=== PATIENT | female | born 1965 | race Hispanic/Latino ===

== ENCOUNTER 2019-01-19 00:06 | Emergency (ER) | payer SELFPAY ==
[2019-01-19 00:20] VITALS: BP 165/88
[2019-01-19] MEDS ORDERED: IPRATROPIUM/ALBUTEROL SULFATE 3 ML AMPUL.NEB IH ONE ×2 (00:30→00:33)
[2019-01-19] MEDS ORDERED: ALBUTEROL 2.5 MG/3 ML NEBU IH ONE ×2 (00:31→00:33)
--- NOTE | 2019-01-19 02:11 | Emergency Department Report ---
- General Chief Complaint: Adult Asthma Stated Complaint: ASTHAM DEANDRE Source: patient Mode of arrival: Ambulatory Limitations: No Limitations - History of Present Illness Initial Comments: Patient is a 53-year-old female with a history of asthma presents to the ED with nasal and sinus congestion, dry cough with wheezing and shortness of breath for the last 2 days. Patient states that she is exposed to people smoke at work and occasionally gets asthma exacerbation from smoke exposure. Patient states that she has been using her albuterol inhaler and nebulizers at home as needed within no relief. Patient denies chest pain, dizziness, fever, chills, nausea, vomiting, sore throat, headache, abdominal pain, back pain, change in vision or syncope. MD Complaint: cough, nasal congestion, other (wheezing, dyspnea) -: Sudden, days(s) (2) Severity: severe Severity scale (0 -10): 7 Quality: dull, aching Consistency: intermittent Improves With: nothing Worsens With: nothing Associated Symptoms: denies other symptoms, rhinorrhea, nasal congestion, cough. denies: fever, chills, myalgias, sore throat, chest pain, nausea, diarrhea, confusion, weight loss, epistaxis, ear pain Treatments Prior to Arrival: none - Related Data Previous Rx's Medication Instructions Recorded Last Taken Type methylPREDNISolone [Medrol 4MG 4 mg PO DAILY #21 tab.ds.pk 01/19/19 Unknown Rx DOSEPAK (21 tabs)] Allergies Allergy/AdvReac Type Severity Reaction Status Date / Time ibuprofen Allergy Swelling Verified 01/19/19 00:16 ED Review of Systems ROS: Stated complaint: ASTHAM DEANDRE Other details as noted in HPI Constitutional: denies: chills, fever Eyes: denies: eye pain, eye discharge, vision change ENT: congestion. denies: ear pain, throat pain Respiratory: cough, shortness of breath, wheezing Cardiovascular: denies: chest pain, palpitations Endocrine: no symptoms reported Gastrointestinal: denies: abdominal pain, nausea, diarrhea Genitourinary: denies: urgency, dysuria, discharge Musculoskeletal: denies: back pain, joint swelling, arthralgia Skin: denies: rash, lesions Neurological: denies: headache, weakness, paresthesias Psychiatric: denies: anxiety, depression Hematological/Lymphatic: denies: easy bleeding, easy bruising ED Past Medical Hx - Past Medical History Previous Medical History?: Yes Hx Asthma: Yes - Surgical History Past Surgical History?: No - Social History Smoking Status: Never Smoker Substance Use Type: None - Medications Home Medications: Home Medications Medication Instructions Recorded Confirmed Last Taken Type methylPREDNISolone [Medrol 4MG 4 mg PO DAILY #21 tab.ds.pk 01/19/19 Unknown Rx DOSEPAK (21 tabs)] ED Physical Exam - General Limitations: No Limitations General appearance: alert, in no apparent distress - Head Head exam: Present: atraumatic, normocephalic, normal inspection - Eye Eye exam: Present: normal appearance, PERRL, EOMI - ENT ENT exam: Present: normal exam, normal orophraynx, mucous membranes moist, TM's normal bilaterally, normal external ear exam - Neck Neck exam: Present: normal inspection, full ROM - Respiratory Respiratory exam: Present: wheezes (mildly diffuse coarse wheezes throughout). Absent: respiratory distress, rales, rhonchi, chest wall tenderness, accessory muscle use, decreased breath sounds - Cardiovascular Cardiovascular Exam: Present: regular rate, normal rhythm. Absent: systolic murmur, diastolic murmur, rubs, gallop - GI/Abdominal GI/Abdominal exam: Present: soft, normal bowel sounds. Absent: tenderness, guarding, hyperactive bowel sounds, hypoactive bowel sounds - Extremities Exam Extremities exam: Present: normal inspection, full ROM, normal capillary refill - Back Exam Back exam: Present: normal inspection, full ROM. Absent: tenderness, muscle spasm - Neurological Exam Neurological exam: Present: alert, oriented X3, CN II-XII intact, normal gait, reflexes normal - Psychiatric Psychiatric exam: Present: normal affect, normal mood - Skin Skin exam: Present: warm, dry, intact, normal color. Absent: rash ED Course Vital Signs 01/19/19 01/19/19 00:19 00:35 Temperature 97.7 F Pulse Rate 87 Pulse Rate [ 80 Bilateral Throughout] Respiratory 18 Rate Respiratory 18 Rate [Bilateral Throughout] Blood Pressure 165/88 O2 Sat by Pulse 94 Oximetry ED Medical Decision Making - Medical Decision Making This is a 53-year-old female who presented to the ED with shortness of breath, nasal and sinus congestion with wheezing and cough. In the ED, patient is alert and oriented 3 and is not in distress. Patient received DuoNeb treatment and also was given steroids in the ED. On reevaluation, patient's wheezing has resolved as well as shortness of breath. Patient declined chest x-ray, preferring to follow-up with her primary care physician for the same in 24 hours. Patient was therefore discharged home on Medrol Dosepak and advised to follow-up with her primary care physician previously scheduled. Patient is advised to return to the ED immediately if symptoms get worse. - Differential Diagnosis asthma; bronchitis, URI; Flu; Dyspnea; pneumonia Critical care attestation.: If time is entered above; I have spent that time in minutes in the direct care of this critically ill patient, excluding procedure time. ED Disposition Clinical Impression: Acute upper respiratory infection Asthmatic bronchitis Qualifiers: Asthma severity: mild Asthma persistence: intermittent Asthma complication type: uncomplicated Qualified Code(s): J45.20 - Mild intermittent asthma, uncomplicated Dyspnea Qualifiers: Dyspnea type: shortness of breath Qualified Code(s): R06.02 - Shortness of breath; R06.00 - Dyspnea, unspecified; R06.01 - Orthopnea Disposition: - TO HOME OR SELFCARE Is pt being admited?: No Does the pt Need Aspirin: No Condition: Stable Instructions: Chronic Bronchitis (ED), Asthma (ED), Upper Respiratory Infection (ED) Additional Instructions: Take medications with food, use your Albuterol inhalers and nebulizers as needed and follow up with your primary care physician as previously scheduled. Return to the ED immediately if symptoms get worse. Prescriptions: methylPREDNISolone [Medrol 4MG DOSEPAK (21 tabs)] 4 mg PO DAILY #21 tab.ds.pk Referrals: PRIMARY CARE, [Primary Care Provider] - 3-5 Days Time of Disposition: 02:10 Print Language: IRANIAN
== END 2019-01-19 02:18 | disposition home or self-care (01) ==
LOC: ED 00:06
DX: J45.20 Mild intermittent asthma, uncomplicated (principal); J06.9 Acute upper respiratory infection, unspecified
CPT/HCPCS: 94640; 94644; 99282